=== PATIENT | male | born 1945 | race Caucasian/White ===

== ENCOUNTER 2023-07-14 11:34 | Emergency (ER) | payer MEDICARE, BC, SELFPAY ==
--- NOTE | ~2023-07-14 | CT_ITS ---
EXAMINATION: CT cervical spine wo con DATE: 07/14/2023 12:08 INDICATION: Head injury. Head and neck pain. TECHNIQUE: Computed tomography (CT) of the cervical spine was performed without intravenous contrast. Automated exposure control and iterative reconstruction technique were employed. The dose-length pro duct was 365.46 mGy-cm. COMPARISON: None FINDINGS: Bone alignment is normal. There is mild chronic height loss of C6 vertebral body. There is mildly decreased disc height at C5-C6 and C6-C7. The following disc levels are specifically discussed : C2-C3: There is no uncovertebral joint osteoarthritis. There is moderate bilateral facet joint osteoa rthritis. There is no neural foraminal stenosis. There is no central canal stenosis. C3-C4: There is mild bilateral uncovertebral joint osteoarthritis. There is moderate right and mild l eft facet joint osteoarthritis. There is no neural foraminal stenosis. There is mild central canal st enosis. C4-C5: There is no uncovertebral joint osteoarthritis. There is mild bilateral facet joint osteoarthr itis. There is no neural foraminal stenosis. There is mild central canal stenosis. C5-C6: There is mild bilateral uncovertebral joint osteoarthritis. There is mild bilateral facet join t osteoarthritis. There is no neural foraminal stenosis. There is mild central canal stenosis. C6-C7: There is mild right and moderate left uncovertebral joint osteoarthritis. There is mild bilate ral facet joint osteoarthritis. There is no neural foraminal stenosis. There is mild central canal st enosis. C7-T1: There is no uncovertebral joint osteoarthritis. There is mild bilateral facet joint osteoarthr itis. There is no neural foraminal stenosis. There is no central canal stenosis. IMPRESSION: 1. No fracture. 2. Mild cervical spondylosis. Reviewed, dictated and finalized at location A.
[2023-07-14 11:42] VITALS: BP 133/72; PULSE 55; RESP 20; TEMP 36.7; O2SAT 97
--- NOTE | 2023-07-14 11:45 | ED.NECK ---
HPI - Neck Pain/Injury General Chief Complaint: Neck Pain/Injury Stated Complaint: neck pain Time Seen by Provider: 07/14/23 11:35 Source: patient Mode of arrival: ambulatory Limitations: no limitations History of Present Illness HPI Narrative: 77 year old male presents to the Emergency Department complaining of neck injury and pain. Patient was seen by chiropractor and thought to possible have cervical fracture and sent to Emergency Department for further evaluation. Patient states he was thrown from his horse 2 days ago and struck his forehead. Denies loss of consciousness. He has some soreness in neck. Denies any numbness or tingling. MD complaint: neck pain Onset (ago): day(s) (2) Place: home Severity: moderate Quality: aching Relieving factors: none Exacerbating factors: movement of extremity Context: fall Associated symptoms: none Related Data Home Medications Medication Instructions Recorded Confirmed atorvastatin 80 mg tablet 80 mg PO DAILY 07/14/23 07/14/23 carvedilol 6.25 mg tablet 6.25 mg PO Q12H 07/14/23 07/14/23 dulaglutide 1.5 mg/0.5 mL 1.5 mg subcut WEEKLY 07/14/23 07/14/23 subcutaneous pen injector (Trulicity) empagliflozin 25 mg tablet 25 mg PO DAILY 07/14/23 07/14/23 (Jardiance) ezetimibe 10 mg tablet 10 mg PO DAILY 07/14/23 07/14/23 insulin aspart U-100 100 unit/mL 15 unit subcut TID 07/14/23 07/14/23 subcutaneous solution (Novolog U-100 Insulin aspart) insulin glargine 100 unit/mL (3 40 unit subcut QPM 07/14/23 07/14/23 mL) subcutaneous pen (Basaglar KwikPen U-100 Insulin) levothyroxine 75 mcg tablet 75 mcg PO DAILY 07/14/23 07/14/23 losartan 100 mg tablet 100 mg PO DAILY 07/14/23 07/14/23 omeprazole 20 mg tablet,delayed 20 mg PO DAILY 07/14/23 07/14/23 release ticagrelor 90 mg tablet (Brilinta) 90 mg PO Q12H 07/14/23 07/14/23 tumeric 100 mg-rosa 150 mg-olive 1 cap PO DAILY 07/14/23 07/14/23 50 mg-oreg 150 mg-caprylate capsule Allergies Allergy/AdvReac Type Severity Reaction Status Date / Time pioglitazone [From Actos] Allergy Unknown Verified 07/14/23 11:54 sitagliptin [From Januvia] Allergy Unknown Verified 07/14/23 11:54 Review of Systems Review of Systems: All systems reviewed & are unremarkable except as noted in HPI and below Constitutional: Constitutional: Reports as per HPI Eyes: Eyes: Reports as per HPI ENT: Reports system reviewed and no additional complaints, except as documented Cardiovascular: Cardiovascular: Reports as per HPI Respiratory: Respiratory: Reports as per HPI Gastrointestinal: Gastrointestinal: Reports as per HPI Genitourinary: Genitourinary: Reports no additional male genitourinary complaints Musculoskeletal: Musculoskeletal: Reports no additional musculoskeletal complaints Integumentary/Breasts: Skin/Breast: Reports system reviewed and no additional complaints, except as docu Neurologic: Reports system reviewed and no additional complaints, except as documented Exam Const: General: healthy appearing Nutritional Appearance: well nourished Orientation/consciousness: patient oriented x3 Limitations: no limitations HENMT: Head: normal to inspection Ears: external ears normal Face/Nose/Sinus: Normal external nose present Face and sinus: normal facial exam Mouth: Yes Normal oral and palatal mucosa present Teeth and gingiva: dentition normal Throat: posterior oropharynx normal Eyes: Conjunctivae: conjunctivae normal Pupils: Equal, round and reactive pupils present EOM: EOMs intact bilaterally Direct Ophthalmoscopy: no photophobia Neck: Neck: normal visual inspection Other: soft collar in place, mild non-localized tenderness to palpation Chest: Chest palpation & inspection: normal inspection of the chest and no tenderness Resp: Effort & Inspection: normal respiratory effort Auscultation: clear to auscultation bilaterally Cardio: Rate: regular rate Rhythm: regular rhythm Heart sounds: Murmur heart sound pr
[2023-07-14 13:00] VITALS: BP 130/71; PULSE 58; RESP 20; TEMP 36.9; O2SAT 98
== END 2023-07-14 13:04 | disposition home or self-care (01) ==
PROVIDERS: Emergency Provider Emergency Medicine
DX: S16.1XXA Strain of muscle, fascia and tendon at neck level, initial encounter (principal); S00.83XA Contusion of other part of head, initial encounter; M47.812 Spondylosis without myelopathy or radiculopathy, cervical region; V80.010A Animal-rider injured by fall from or being thrown from horse in noncollision accident, initial encounter; Z79.85 Long-term (current) use of injectable non-insulin antidiabetic drugs; Z79.4 Long term (current) use of insulin; Z79.01 Long term (current) use of anticoagulants
CPT/HCPCS: 72125; 99284